=== PATIENT | male | born 1950 ===

== ENCOUNTER 2016-10-18 07:25 | Emergency (ER) | payer MEDICARE ==
[~2016-10-18] VITALS: Ht 177.8 cm; Wt 84.0 kg
[2016-10-18] MEDS ORDERED: NITROGLYCERIN SUBLINGUAL 0.4 MG (NITROQUICK) TABLET SL PRN (07:40)
[2016-10-18 08:07] LABS: MEAN CORPUSCULAR HEMOGLOBIN 31.3 PG (26.0-34.0); MEAN CORPUSCULAR VOLUME 87 FL (80-100); MEAN PLATELET VOLUME 9.9 FL (6.0-9.5); PLATELET COUNT 202 10^3uL (150-450); WHITE BLOOD COUNT 9.55 10^3uL (4.0-11.0)
[2016-10-18] MEDS: KETOROLAC 30 MG/ML (TORADOL) 1 ML VIAL IV ONE ×2 (08:19→08:23)
--- NOTE | 2016-10-18 08:23 | NUR ---
pt s iv that ems placed not in place, oral med given instead of iv, ems iv pulled
[2016-10-18] MEDS ORDERED: HYDROcodone/APAP 5 MG/325 MG (NORCO) TAB PO ONE (08:25)
[2016-10-18 08:35] LABS: BILIRUBIN,URINE Negative (Negative); CLARITY,URINE Clear; COLOR,URINE Yellow; GLUCOSE, URINE (UA) Negative (Negative); LEUKOCYTE ESTERASE ,URINE Negative (Negative); UROBILINOGEN,URINE 0.2 mg/dL (0.2-1.0)
[2016-10-18 08:37] LABS: ALBUMIN 3.4 g/dL (3.4-5.0); ALKALINE PHOSPHATASE 125 U/L (38-126); ANION GAP 14.8 MEQ/L (3-15); BUN/CREATININE RATIO 9 (10-20); CALCULATED IONIZED CALCIUM 4.3 mg/dL (3.8-4.6); CREATINE KINASE 39 U/L (55-170); TOTAL PROTEIN 6.4 g/dL (6.4-8.5)
[2016-10-18 08:38] LABS: MEAN CORPUSCULAR HGB CONC 35.9 g/dL (31.0-37.0)
[2016-10-18 08:42] LABS: INFLUENZA VIRUS TYPE A ANTIBOD Negative (NEGATIVE); INFLUENZA VIRUS TYPE B ANTIBOD Negative (NEGATIVE)
[2016-10-18 08:53] LABS: AMPHETAMINE SCREEN, URINE Negative (Negative); CANNABINOID SCREEN, URINE Negative (Negative); METHAMPHETAMINE SCREEN URINE S NEGATIVE (NEGATIVE); OPIATE SCREEN URINE Negative (Negative); PROPOXYPHENE STAT NEGATIVE (NEGATIVE)
[2016-10-18] MEDS ORDERED: NS IV 500 ML 500 ML IV SCH ×2 (09:25→10:10)
[2016-10-18 09:29] LABS: BAND NEUTROPHILS % 5 % (0-6); EOSINOPHILS % 2 % (0-4); LYMPHOCYTES # 0.9 #; MONOCYTES # 1.3 #; MONOCYTES % 14 % (3-11); RBC MORPH NORMAL (NORMAL); SEGMENTED NEUTROPHILS % 69 % (51-67); TOTAL CELLS COUNTED 100
--- NOTE | 2016-10-18 10:23 | NUR ---
to ct at approx 0950, back at approx 1015
[2016-10-18 11:24] VITALS: BP 164/77
--- NOTE | 2016-10-18 11:25 | NUR ---
Dr. Caballero consulting with Dr. Pierson, hospitalist at [facility].
[2016-10-18] MEDS ORDERED: HEPARIN DRIP 25000 UNIT/250 ML 250 ML IV ONE (11:50)
[2016-10-18] MEDS ORDERED: HEPARIN 1000 UNIT/ML 2 ML VIAL IV ONE (12:00)
== END 2016-10-18 12:59 | disposition home or self-care (01) ==
LOC: EDUNIT# 07:25 → ED 07:27
DX: I26.99 Other pulmonary embolism without acute cor pulmonale (principal); J20.9 Acute bronchitis, unspecified; Z87.891 Personal history of nicotine dependence; I10 Essential (primary) hypertension
CPT/HCPCS: 36415; 71010; 71275; 80053; 81003; 82550; 82553; 83605; 83880; 84443; 84484; 85025; 85379; 85610; 86140; 87040; 87502; 93005; 96361; 96374; 99285; A9270; G0478; J1644; J7040; Q9967; 80307; 93010

== ENCOUNTER → 2016-10-18 | Outpatient (CLI) | payer MEDICARE | LOC: EMS 07:10 | PROVIDERS: ATTEND Family Medicine | DX: I26.99 Other pulmonary embolism without acute cor pulmonale (principal); R06.09 Other forms of dyspnea ==

== ENCOUNTER → 2016-10-30 | Outpatient (REF) | payer MEDICARE ==
[~2016-10-30] MED LIST: AC325T PO; ACET1TAB PO; ALBU8.5H2 IH; ALPR.25T PO; AMIT25TA9 PO; AMOX1TAB12 PO; ASPI-586 PO; ATOR80TA PO; AZIT250T PO; AZIT250T81 PO; BENZ-13 PO; CLN.1T; CLON0.1T PO; DEXA1TAB PO; DEXA4TAB PO; DIPH50CA PO; DPH25C PO; FLUO10CA19 PO; FLX20C PO; FURO-125 PO; GBPN100C PO; HYDR-3702 PO; LEVE500T6 PO; LSNP10T PO; METO25TA60 PO; MULT-646 PO; OXYC5TAB71 PO; PHEN100C11 PO; PHEN100C4 PO; PHN100C PO; PTU50T PO; RANI150C4 PO; RIVA15TA2 PO; TERA10CA3 PO; TERA5CAP3 PO; ZOLP10TA PO; [UNRECOGNIZED DRUG - CODE] EP
[2016-10-30 12:52] LABS: MEAN CORPUSCULAR HEMOGLOBIN 30.6 PG (26.0-34.0); MEAN CORPUSCULAR HGB CONC 34.4 g/dL (31.0-37.0); MEAN CORPUSCULAR VOLUME 89 FL (80-100); MEAN PLATELET VOLUME 10.1 FL (6.0-9.5); PLATELET COUNT 381 10^3uL (150-450); WHITE BLOOD COUNT 10.81 10^3uL (4.0-11.0)
[2016-10-30 12:57] LABS: BAND NEUTROPHILS % 1 % (0-6); EOSINOPHILS % 2 % (0-4); LYMPHOCYTES # 1.3 #; MONOCYTES # 0.6 #; MONOCYTES % 6 % (3-11); RBC MORPH NORMAL (NORMAL); SEGMENTED NEUTROPHILS % 79 % (51-67); TOTAL CELLS COUNTED 100
[2016-10-30 13:03] LABS: ALBUMIN 3.5 g/dL (3.4-5.0); ANION GAP 14.1 MEQ/L (3-15); CALCULATED IONIZED CALCIUM 4.4 mg/dL (3.8-4.6); TOTAL PROTEIN 6.3 g/dL (6.4-8.5)
[2016-10-31 09:59] LABS: Factor V Leiden Mutation Negative (Negative)
[2016-11-01 14:17] LABS: LEVETIRACETAM LEVEL 18.3 mcg/mL
[2016-11-01 17:01] LABS: CARDIOLIPIN IGG ANTIBODY <9.4 GPL; CARDIOLIPIN IGM ANTIBODY <9.4 MPL
== END ==
LOC: LAB 11:03
PROVIDERS: ATTEND Family Medicine
DX: Z51.81 Encounter for therapeutic drug level monitoring (principal); I65.23 Occlusion and stenosis of bilateral carotid arteries; I25.10 Atherosclerotic heart disease of native coronary artery without angina pectoris; E07.89 Other specified disorders of thyroid; I26.99 Other pulmonary embolism without acute cor pulmonale; Z85.528 Personal history of other malignant neoplasm of kidney; N28.89 Other specified disorders of kidney and ureter
CPT/HCPCS: 80053; 80177; 80185; 81241; 84439; 84443; 84481; 85025; 86147

== ENCOUNTER 2016-11-10 09:45 | Outpatient (RCR) | payer MEDICARE ==
--- NOTE | 2016-11-06 13:38 | PT/OT/ST INITIAL EVALUATION ---
Department of Health and Human Services Form Approved Health Care Financing Administration OMB No. [id number] PLAN OF CARE/ASSESSMENT FOR OUTPATIENT REHABILITATION (Complete for Initial Claims Only) 1. PATIENT'S NAME Krish Ozuna 2. ACC # [id number] 3. [facility] [id number] 4. PROVIDER NO. [id number] 5. TYPE: PT 6. PRIOR HOSPITALIZATION None 7. PRIMARY DX Generalized weakness status post pulmonary emboli. 8. SECONDARY DX Na 9. ONSET DATE May 2016 10. REFERRAL DATE NA 11. SOC. DATE 11/03/2016 12. TIME OF EVAL 7:57 a.m. 12. REFERR[address]YSICIAN Dr. Lior Blanton 13. CHARGES/UNITS NA 14. G CODES [id number] 15. PRIOR LEVEL OF FUNCTION; PERTINENT HISTORY (Prior therapy results, reason for referral.) S: Prior to therapy, the patient did consent to today's evaluation and treatment. The patient is a 66-year-old male referred to physical therapy by Dr. Blanton to address generalized weakness status post pulmonary emboli. The patient does rate his overall and general health as poor. Primary Complaint: The patient states he began to experience weakness approximately 6 years ago when he was diagnosed with a meningioma, which was benign. This meningioma was removed; however, he did have 3 grand mal seizures prior to this. However, 3 years following this, three more meningiomas were then found. They have been monitoring these at this time. The patient does report that one is moving around and growing, which is causing left leg weakness, per patient report. The patient states in May 2016 he began to have seizures and since this time has noticed that he fatigues easily and was having difficulty getting around the house and the community. The patient has had balance issues due to this with a few falls; however, in October the patient got significantly ill where he was hospitalized and found that he had pulmonary emboli in his lungs. The patient states since getting out of the hospital his balance issues has significantly increased and he is falling at least 3 to 4 times per week. The falls are to the left side, frequently falling onto the left hip. The patient is able to ambulate with a front-wheeled walker. The patient does have a 4-wheeled walker at home, but this is not stable enough for him to use. Prior level of function: Includes the patient being able to walk, drive, mow his lawn and had no limitations. The patient ambulated with a single-point cane prior to onset of symptoms in May. Current level of function: Currently the patient is having 20 to 30 second spasming episodes in the left lower extremity. He needs to lie down to manage these and these are happening 1 to 2 times per day. The patient has additionally noticed that his left lower extremity is swelling at times and he feels that it is significantly weak. The patient is additionally having difficulty entering his house as there are 2 steps to enter and he requires assistance with these. Ambulating on his carpet is additionally significantly difficult frequently catching his left toe and causing falls. Therapy History: Includes 1 year ago where he had therapy on his shoulders. Obstacles to delivery of care do include progressive disorder with a growing meningioma. Pain rating: Maximal pain level is reported as 5/10. The patient describes the pain as left hip pain from falls. Aggravating factors: Include being up on his feet for longer periods of time. Relieving factors: Include first thing in the morning where he feels the best. Diagnostic testing: The patient reports no diagnostic tests at this time. Past medical history: Includes renal cancer, which he has had 1 kidney removed. Osteoarthritis, seizures, depression, hypertension, and scrotal swelling with this cyst. The patient additionally has a history of MRSA, but he does not actively have any wounds. Current medications: The patient will provide a list of medications at a future visit. Patient's Goal: The patient's goal for physical therapy is to be able to walk to get around the community and his home. 16. INITIAL ASSESSMENT/SAFETY PRECAUTIONS/MEDICAL COMPLICATIONS (Level of function at start of care. Be specific, use objective measures, list problems.) O: APPEARANCE AND OBSERVATION: The patient presents as an older male who arrives at physical therapy in a wheelchair. The patient is able to ambulate with contact guard assist, however, he has difficulty clearing his left toe and does fatigue easily. The patient requires verbal cueing in order to lift his legs. The patient is stand-by assist with all transfers. PALPATION: No palpation was performed. SPECIAL TESTS: No special tests were performed. OUTCOME ASSESSMENTS: Tinetti Balance and Gait Assessment which scored 8/28 putting the patient at a significant increased risk of falls. RANGE OF MOTION/FLEXIBILITY: Decreased flexibility but AROM on the right is to neutral. On the left, PROM is lacking 5 degrees from neutral. Hamstring flexibility is 142 degrees on the right and 139 degrees on the left. STRENGTH: Throughout the right lower extremity is grossly 4+/5 throughout and throughout the left lower extremity hip strength is grossly 2+/5, knee strength is grossly 2/5, dorsiflexion is 0/5 and plantar flexion is 1/5. TODAY'S TREATMENT: Following the initial evaluation therapeutic exercise was performed and issued a home exercise program. This patient was able to reproduce all exercises given to him. 17. 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 PROGNOSIS: This patient does have a fair prognosis with regular therapy attendance and compliance with home exercise program. This patient is expected to benefit from physical therapy services in order to have increased strength, increased active range of motion to return to home and short distance community mobility. This patient would be a good candidate for an AFO due to left foot drop. The doctor will be contacted regarding this specifically. GOALS: 1. The patient to be independent and compliant with home exercise program in 1 week. 2. The patient with passive range of motion left dorsiflexion to at least 0 degrees in 3 weeks to allow toe clearance for safe ambulation. 3. The patient with left lower extremity strength at the hip and knee at least 3+/5 throughout to allow independent transfers in 6 weeks. 4. The patient will a Tinetti score at least 19/28 in 8 weeks to reflect decreased fall risk for integration back to short community mobility. INFORMED CONSENT: The diagnosis, prognosis, treatment plan, risks and expected outcomes were discussed with the patient and the patient did agree to today's established plan of care. P: Plan to treat the patient 3 times per week for 8 weeks in order to address generalized weakness status post pulmonary emboli. Treatment to include possible manual therapy techniques, therapeutic exercise targeting active range of motion, strengthening, gait training, balance and proprioception training and patient education in home exercise program to be advanced as warranted. 18. FREQUENCY 3 times week 19. DURATION 8 weeks 20. FUNCTIONAL LEVEL (End of claim period) 21. PHYSICIAN SIGNATURE ? ON FILE OR ENTER HERE: 22. DATE: I certify the need for these services furnished under this plan of care and if for partial hospitalization. 23. CERTIFICATION FROM THROUGH [phone]
[~2016-11-10 09:45] MED LIST changes: -ALPR.25T PO; -AMIT25TA9 PO; -AZIT250T PO; -BENZ-13 PO; -DEXA4TAB PO; -DPH25C PO; -FURO-125 PO; -OXYC5TAB71 PO; -PHEN100C4 PO; -RIVA15TA2 PO
[2016-11-11] MEDS ORDERED: TERA10CA3 PO (08:41)
[2016-11-11] MEDS ORDERED: OXYC5TAB71 PO (08:41)
[2016-11-11] MEDS ORDERED: RIVA15TA2 PO (08:41)
[2016-11-17] MEDS ORDERED: DPH25C PO (20:15)
[2016-11-17] MEDS ORDERED: GBPN100C PO (20:15)
[2016-11-17] MEDS ORDERED: BENZ-13 PO (20:15)
[2016-11-17] MEDS ORDERED: ALPR.25T PO (20:15)
[2016-11-17] MEDS ORDERED: METO25TA60 PO (20:15)
[2016-11-17] MEDS ORDERED: RIVA15TA2 PO (20:15)
[2016-11-17] MEDS ORDERED: ZOLP10TA PO (20:15)
[2016-11-17] MEDS ORDERED: PHEN100C4 PO ×2 (20:15)
[2016-11-17] MEDS ORDERED: DEXA4TAB PO (20:15)
[2016-11-17] MEDS ORDERED: FLX20C PO (20:15)
[2016-11-17] MEDS ORDERED: AZIT250T PO (23:20)
== END 2016-12-29 13:20 | disposition home or self-care (01) ==
LOC: PT 09:45
PROVIDERS: ATTEND Family Medicine
DX: R53.1 Weakness (principal); Z92.89 Personal history of other medical treatment; I26.99 Other pulmonary embolism without acute cor pulmonale
CPT/HCPCS: 97110; 97163; G8978; G8979

== ENCOUNTER 2016-11-11 08:08 | Emergency (ER) | payer MEDICARE ==
[~2016-11-11] VITALS: Ht 177.8 cm; Wt 79.5 kg
[2016-11-11 08:44] LABS: BASOPHILS % (AUTO) 0 % (0-2); EOSINOPHILS # (AUTO) 0.1 10^3uL; EOSINOPHILS % (AUTO) 1 % (0-4); MEAN CORPUSCULAR HEMOGLOBIN 30.4 PG (26.0-34.0); MEAN CORPUSCULAR HGB CONC 34.1 g/dL (31.0-37.0); MEAN CORPUSCULAR VOLUME 89 FL (80-100); MEAN PLATELET VOLUME 10.6 FL (6.0-9.5); MONOCYTES # (AUTO) 0.5 X10^3; MONOCYTES % (AUTO) 8 % (3-11); NEUTROPHILS # (AUTO) 4.7 X10^3; NEUTROPHILS % (AUTO) 74 % (51-67); PLATELET COUNT 180 10^3uL (150-450); WHITE BLOOD COUNT 6.38 10^3uL (4.0-11.0)
[2016-11-11 08:58] LABS: ALBUMIN 3.7 g/dL (3.4-5.0); ALKALINE PHOSPHATASE 94 U/L (38-126); ANION GAP 14.5 MEQ/L (3-15); BUN/CREATININE RATIO 18 (10-20); CALCULATED IONIZED CALCIUM 4.3 mg/dL (3.8-4.6); TOTAL PROTEIN 6.3 g/dL (6.4-8.5)
[2016-11-11 09:24] LABS: BILIRUBIN,URINE Negative (Negative); CLARITY,URINE Clear; COLOR,URINE Yellow; GLUCOSE, URINE (UA) Negative (Negative); LEUKOCYTE ESTERASE ,URINE Negative (Negative); UROBILINOGEN,URINE 0.2 mg/dL (0.2-1.0)
[2016-11-11 13:00] VITALS: BP 163/74
== END 2016-11-11 10:15 | disposition home or self-care (01) ==
LOC: EDUNIT# 08:08 → ED 08:10
DX: R53.1 Weakness (principal); R47.81 Slurred speech; R07.89 Other chest pain; T42.0X5A Adverse effect of hydantoin derivatives, initial encounter; I10 Essential (primary) hypertension; G40.909 Epilepsy, unspecified, not intractable, without status epilepticus
CPT/HCPCS: 36415; 80053; 80185; 81003; 84484; 85025; 93005; 93010; 99284

== ENCOUNTER → 2016-11-17 | Outpatient (CLI) | payer MEDICARE | LOC: EMS 19:12 | PROVIDERS: ATTEND Emergency Medicine | DX: R06.02 Shortness of breath (principal); R56.9 Unspecified convulsions ==

== ENCOUNTER → 2016-11-17 | Emergency (ER) | payer MEDICARE ==
[~2016-11-17] VITALS: Ht 177.8 cm; Wt 79.5 kg
[~2016-11-17] MED LIST changes: -AC325T PO; -ACET1TAB PO; -ALBU8.5H2 IH; -AMOX1TAB12 PO; -ASPI-586 PO; -ATOR80TA PO; -AZIT250T81 PO; +AZITHROMYCIN 250 MG TAB (ZITHROMAX) PO ONE; -CLN.1T; -CLON0.1T PO; -DEXA1TAB PO; -DIPH50CA PO; -FLUO10CA19 PO; -FLX20C PO; -GBPN100C PO; -HYDR-3702 PO; -LEVE500T6 PO; -LSNP10T PO; -METO25TA60 PO; -MULT-646 PO; -PHEN100C11 PO; -PHN100C PO; -PTU50T PO; -RANI150C4 PO; -TERA10CA3 PO; -TERA5CAP3 PO; -ZOLP10TA PO; -[UNRECOGNIZED DRUG - CODE] EP; +cefTRIAXone SODIUM 1,000 MG in SODIUM CHLORIDE 50 ML IV ONE
--- NOTE | 2016-11-17 19:58 | NUR ---
DID HAVE LAB DRAWN TO DAY HERE AND DR RODRIGUEZ CALLED HIM AND TOLD HIM HIS DILANTIN LEVEL WAS 36
--- NOTE | 2016-11-17 19:59 | NUR ---
ALSO DR CARMICHAEL TOLD THEM TODAY THAT PT R COROTID ARTERY WAS 96% BLOCKED, IS SUPPOSE TO SEE CANCER TOMORROW
[2016-11-17 21:10] LABS: BASOPHILS % (AUTO) 1 % (0-2); EOSINOPHILS # (AUTO) 0.6 10^3uL; EOSINOPHILS % (AUTO) 9 % (0-4); LYMPHOCYTES # (AUTO) 1.8 X10^3; MEAN CORPUSCULAR HEMOGLOBIN 30.3 PG (26.0-34.0); MEAN CORPUSCULAR VOLUME 89 FL (80-100); MONOCYTES # (AUTO) 0.7 X10^3; MONOCYTES % (AUTO) 11 % (3-11); NEUTROPHILS # (AUTO) 3.1 X10^3; NEUTROPHILS % (AUTO) 50 % (51-67); PLATELET COUNT 157 10^3uL (150-450); WHITE BLOOD COUNT 6.19 10^3uL (4.0-11.0)
[2016-11-17 21:17] LABS: ALBUMIN 3.9 g/dL (3.4-5.0); ANION GAP 13.3 MEQ/L (3-15); CALCULATED IONIZED CALCIUM 4.3 mg/dL (3.8-4.6); TOTAL PROTEIN 6.7 g/dL (6.4-8.5)
[2016-11-17 21:42] LABS: BILIRUBIN,URINE Negative (Negative); CLARITY,URINE Clear; COLOR,URINE Yellow; GLUCOSE, URINE (UA) Negative (Negative); LEUKOCYTE ESTERASE ,URINE Negative (Negative); UROBILINOGEN,URINE 0.2 mg/dL (0.2-1.0)
[2016-11-18 00:06] VITALS: BP 123/64
== END | disposition home or self-care (01) ==
LOC: ED 19:31
DX: J18.9 Pneumonia, unspecified organism (principal); D32.0 Benign neoplasm of cerebral meninges; G81.94 Hemiplegia, unspecified affecting left nondominant side
CPT/HCPCS: 36415; 71010; 80053; 81003; 85025; 96365; 99283; A9270; J0696

== ENCOUNTER → 2016-11-17 | Outpatient (REF) | payer MEDICARE ==
[2016-11-17 12:36] LABS: ANION GAP 12.5 MEQ/L (3-15); CALCULATED IONIZED CALCIUM 4.3 mg/dL (3.8-4.6); TOTAL PROTEIN 6.7 g/dL (6.4-8.5)
[2016-11-17 12:41] LABS: MEAN CORPUSCULAR HEMOGLOBIN 29.7 PG (26.0-34.0); MEAN CORPUSCULAR HGB CONC 33.2 g/dL (31.0-37.0); WHITE BLOOD COUNT 7.77 10^3uL (4.0-11.0)
== END ==
LOC: LAB 11:40
PROVIDERS: ATTEND Family Medicine
DX: G40.109 Localization-related (focal) (partial) symptomatic epilepsy and epileptic syndromes with simple partial seizures, not intractable, without status epilepticus (principal); I12.9 Hypertensive chronic kidney disease with stage 1 through stage 4 chronic kidney disease, or unspecified chronic kidney disease; N18.2 Chronic kidney disease, stage 2 (mild); D32.0 Benign neoplasm of cerebral meninges; T42.0X1A Poisoning by hydantoin derivatives, accidental (unintentional), initial encounter
CPT/HCPCS: 80053; 80185; 85027

== ENCOUNTER → 2016-11-25 | Outpatient (CLI) | payer MEDICARE ==
[2016-11-25 09:09] LABS: ANION GAP 13.9 MEQ/L (3-15)
== END ==
LOC: LAB 08:14
PROVIDERS: ATTEND Family Medicine
DX: I26.99 Other pulmonary embolism without acute cor pulmonale (principal); Z85.528 Personal history of other malignant neoplasm of kidney; N28.89 Other specified disorders of kidney and ureter; E87.5 Hyperkalemia; T42.0X1A Poisoning by hydantoin derivatives, accidental (unintentional), initial encounter
CPT/HCPCS: 36415; 80048; 80185; 81240

== ENCOUNTER → 2016-12-02 | Outpatient (REF) | payer MEDICARE ==
[~2016-12-02] MED LIST changes: +AC325T PO; +ACET1TAB PO; +ALBU8.5H2 IH; +ALPR.25T PO; +AMOX1TAB12 PO; +ASPI-586 PO; +ATOR80TA PO; +AZIT250T PO; +AZIT250T81 PO; -AZITHROMYCIN 250 MG TAB (ZITHROMAX) PO ONE; +BENZ-13 PO; +CLN.1T; +CLON0.1T PO; +DEXA1TAB PO; +DEXA4TAB PO; +DIPH50CA PO; +DPH25C PO; +FLUO10CA19 PO; +FLX20C PO; +GBPN100C PO; +HYDR-3702 PO; +LEVE500T6 PO; +LSNP10T PO; +METO25TA60 PO; +MULT-646 PO; +OXYC5TAB71 PO; +PHEN100C11 PO; +PHEN100C4 PO; +PHN100C PO; +PTU50T PO; +RANI150C4 PO; +RIVA15TA2 PO; +TERA10CA3 PO; +TERA5CAP3 PO; +ZOLP10TA PO; +[UNRECOGNIZED DRUG - CODE] EP; -cefTRIAXone SODIUM 1,000 MG in SODIUM CHLORIDE 50 ML IV ONE
== END ==
LOC: LAB 11:48
PROVIDERS: ATTEND Family Medicine
DX: G40.804 Other epilepsy, intractable, without status epilepticus (principal)
CPT/HCPCS: 80185

== ENCOUNTER → 2016-12-08 | Outpatient (CLI) | payer MEDICARE ==
--- NOTE | 2016-12-08 09:22 | Diagnostic Imaging Report ---
PROCEDURE: US Carotid Duplex Bilateral. TECHNIQUE: Multiple real-time grayscale images were obtained over the carotid arteries in various projections bilaterally. Additional duplex Doppler and color Doppler images were also obtained. INDICATION: Right neck: Soft plaque is visible at the carotid bulb at the origin of the internal carotid artery. This does not have any obvious ulceration. The velocity data do not indicate hemodynamically significant stenosis of the internal or external carotid arteries. Estimated 30-40% diameter stenosis of the proximal right internal carotid artery is present. Antegrade flow is present in the right vertebral. Left neck: Intimal medial thickening with calcified and noncalcified plaque is present at the left carotid bulb. No hemodynamically significant stenosis of the internal or external carotid arteries is identified. Antegrade flow is present in the left vertebral. IMPRESSION: 1. Atheromatous changes at the bifurcations with moderate soft atheromatous plaque at the origin of the right internal carotid artery. No hemodynamically significant stenosis is identified. Dictated by: Dictated on workstation # [id number]
--- NOTE | 2016-12-08 18:39 | Diagnostic Imaging Report ---
INDICATION: Renal cell carcinoma. Following intravenous injection of 26.2 mCi of 99m technetium MDP, anterior and posterior whole body sonographic images are performed with additional high-resolution views of the lumbar spine and calvarium. COMPARISON: No prior bone scan. Calvarium: Two areas of curvilinear increased activity are present in the right parietal calvarium at the convexity at the region of the right craniotomy, calvarium is otherwise negative. Thorax: Small focus of increased uptake is visible along the lateral aspect of the right 10th rib. Small focal area of normal uptake is visible involving the mid aspect of the left 10th rib. Spine: Negative Pelvis: Negative Extremities: Degenerative uptake medial right knee. Renal uptake: Absent left kidney compatible with nephrectomy. IMPRESSION: 1. Abnormal uptake in bilateral 10th ribs, etiology indeterminate. 2. Right parietal calvarial uptake at the region of the previous craniotomy and known extra-axial mass. Dictated by: Dictated on workstation # [id number]
== END ==
LOC: RAD 07:57
PROVIDERS: ATTEND Family Medicine
DX: M53.3 Sacrococcygeal disorders, not elsewhere classified (principal); C64.2 Malignant neoplasm of left kidney, except renal pelvis; R42 Dizziness and giddiness; G40.804 Other epilepsy, intractable, without status epilepticus
CPT/HCPCS: 36415; 78306; 80185; 93880; A9503

== ENCOUNTER → 2016-12-19 | Outpatient (REF) | payer MEDICARE ==
[2016-12-19 11:23] LABS: ALBUMIN 3.9 g/dL (3.4-5.0); ANION GAP 14.4 MEQ/L (3-15); CALCULATED IONIZED CALCIUM 4.3 mg/dL (3.8-4.6); TOTAL PROTEIN 6.4 g/dL (6.4-8.5)
[2016-12-19 13:04] LABS: BASOPHILS % (AUTO) 0 % (0-2); EOSINOPHILS # (AUTO) 0.2 10^3uL; EOSINOPHILS % (AUTO) 3 % (0-4); LYMPHOCYTES # (AUTO) 1.3 X10^3; MEAN CORPUSCULAR HEMOGLOBIN 30.2 PG (26.0-34.0); MEAN CORPUSCULAR HGB CONC 34.4 g/dL (31.0-37.0); MEAN CORPUSCULAR VOLUME 88 FL (80-100); MEAN PLATELET VOLUME 11.6 FL (6.0-9.5); MONOCYTES # (AUTO) 0.9 X10^3; MONOCYTES % (AUTO) 11 % (3-11); NEUTROPHILS # (AUTO) 5.5 X10^3; NEUTROPHILS % (AUTO) 69 % (51-67); PLATELET COUNT 199 10^3uL (150-450); WHITE BLOOD COUNT 8.02 10^3uL (4.0-11.0)
== END ==
LOC: LAB 11:03
PROVIDERS: ATTEND Family Medicine
DX: G40.804 Other epilepsy, intractable, without status epilepticus (principal); N18.2 Chronic kidney disease, stage 2 (mild); I10 Essential (primary) hypertension; C64.2 Malignant neoplasm of left kidney, except renal pelvis; D32.0 Benign neoplasm of cerebral meninges
CPT/HCPCS: 80053; 80185; 85025

== ENCOUNTER 2017-01-10 19:30 | Emergency (ER) | payer MEDICARE ==
[~2017-01-10] VITALS: Ht 177.8 cm; Wt 84.1 kg
[~2017-01-10 19:30] MED LIST changes: -AMIT25TA9 PO; -FURO-125 PO
[2017-01-10] MEDS ORDERED: SODIUM CHLORIDE FLUSH 3 ML SYR IV PRN (19:50)
[2017-01-10] MEDS ORDERED: SODIUM CHLORIDE FLUSH 10 ML SYR IV PRN (19:50)
--- NOTE | 2017-01-10 20:00 | NUR ---
Pt brought into ER to by EMS. Pt presents with complaint of left leg swelling with itching and tingling. Pt reports that he normally has leg swelling at night but the left leg is more pronounced this evening. The itching and tingling is new tonight. Pt states since he is in a lying position now the tingling and itching has receded. Pt's left leg does have more swelling than right. Pitting edema to left leg 2+. Pt denies being in pain. Pt resting on bed, cooperative with interventions. Side rails up times two, cart in lowest position.
[2017-01-10] MEDS ORDERED: AMIT25TA9 PO (20:02)
[2017-01-10] MEDS ORDERED: ATOR80TA PO (20:02)
[2017-01-10 20:25] LABS: BASOPHILS % (AUTO) 1 % (0-2); EOSINOPHILS # (AUTO) 0.3 10^3uL; EOSINOPHILS % (AUTO) 3 % (0-4); LYMPHOCYTES # (AUTO) 1.9 X10^3; MEAN CORPUSCULAR HEMOGLOBIN 30.2 PG (26.0-34.0); MEAN CORPUSCULAR HGB CONC 34.5 g/dL (31.0-37.0); MEAN CORPUSCULAR VOLUME 88 FL (80-100); MEAN PLATELET VOLUME 10.8 FL (6.0-9.5); MONOCYTES % (AUTO) 11 % (3-11); NEUTROPHILS # (AUTO) 5.3 X10^3; NEUTROPHILS % (AUTO) 62 % (51-67); PLATELET COUNT 200 10^3uL (150-450); WHITE BLOOD COUNT 8.61 10^3uL (4.0-11.0)
[2017-01-10 20:32] LABS: ALBUMIN 3.7 g/dL (3.4-5.0); ALKALINE PHOSPHATASE 100 U/L (38-126); ANION GAP 12.8 MEQ/L (3-15); BUN/CREATININE RATIO 15 (10-20); CALCULATED IONIZED CALCIUM 4.4 mg/dL (3.8-4.6); CREATINE KINASE 32 U/L (55-170); TOTAL PROTEIN 6.2 g/dL (6.4-8.5)
--- NOTE | 2017-01-10 20:35 | NUR ---
Pt resting in room on cart with daughter present at bedside. Awaiting results from lab and xray report. Ultrasound personnel on their way in to do US. Call light in reach. No needs.
[2017-01-10 20:38] LABS: BILIRUBIN,URINE Negative (Negative); CLARITY,URINE Clear; COLOR,URINE Yellow; GLUCOSE, URINE (UA) Negative (Negative); LEUKOCYTE ESTERASE ,URINE Negative (Negative); UROBILINOGEN,URINE 0.2 mg/dL (0.2-1.0)
--- NOTE | 2017-01-10 20:45 | Diagnostic Imaging Report ---
INDICATION: Weakness. COMPARISON up-regulation 11/17/16. FINDINGS: The heart size is stable. There is minimal scarring in the right lung base. There is no pleural effusion or pneumothorax. The mediastinum is unremarkable. IMPRESSION: Stable appearance of the chest. Dictated by: Dictated on workstation # [id number]
[2017-01-10 21:04] LABS: AMPHETAMINE SCREEN, URINE Negative (Negative); CANNABINOID SCREEN, URINE Negative (Negative); METHAMPHETAMINE SCREEN URINE S NEGATIVE (NEGATIVE); OPIATE SCREEN URINE Negative (Negative); PROPOXYPHENE STAT NEGATIVE (NEGATIVE)
--- NOTE | 2017-01-10 21:30 | Diagnostic Imaging Report ---
INDICATION: Leg swelling. TECHNIQUE: Multiple real-time grayscale images were obtained over the left lower extremity in various projections. Duplex Doppler and color Doppler images were also obtained. FINDINGS: The left common femoral, femoral, and popliteal veins demonstrate normal response to compression, augmentation, and Valsalva. There is some soft tissue swelling in the popliteal fossa. David's cyst cannot be excluded. IMPRESSION: No evidence of deep venous thrombosis. Nonspecific soft tissue swelling in the popliteal fossa. Possibility of an underlying David's cyst cannot be excluded. Dictated by: Dictated on workstation # [id number]
[2017-01-10] MEDS ORDERED: FURO-125 PO (21:34)
--- NOTE | 2017-01-10 21:48 | NUR ---
Pt dismissed to home with instructions. Pt stated his understanding. IV site discontinued and wrapped in coban due to adhesive allergy. Pt instructed instructed to remove it when he leaves. Pt taken to POV via wheelchair. No other concerns or questions presented.
[2017-01-10 22:22] VITALS: BP 141/74
== END 2017-01-10 21:48 | disposition home or self-care (01) ==
LOC: ED 19:32
DX: R60.0 Localized edema (principal)
CPT/HCPCS: 36415; 71010; 80053; 80177; 80185; 80307; 81003; 82550; 82553; 83880; 84443; 84484; 85025; 85610; 85730; 93005; 93971; 99285; G0480; 80320; 99283

== ENCOUNTER → 2017-01-10 | Outpatient (CLI) | payer MEDICARE ==
[~2017-01-10] MED LIST changes: +AMIT25TA9 PO; +FURO-125 PO
== END ==
LOC: EMS 19:51
PROVIDERS: ATTEND Emergency Medicine
DX: M79.89 Other specified soft tissue disorders (principal); R20.2 Paresthesia of skin

== ENCOUNTER 2017-01-30 10:11 | Emergency (ER) | payer MEDICARE ==
[~2017-01-30] VITALS: Ht 177.8 cm; Wt 84.0 kg
--- NOTE | 2017-01-30 10:32 | NUR ---
Patient reports that he only has pain to chest when taking a deep breath and he only feels SOB when trying to take a deep breath. He stated, "I feel like I can't get enough air when I try to take a deep breath."
--- NOTE | 2017-01-30 10:52 | Diagnostic Imaging Report ---
INDICATION: Hemoptysis. EXAMINATION: PA and lateral views of the chest were obtained at 1039 hours. COMPARISON: 01/10/2017. FINDINGS: The heart and mediastinal silhouette are normal in appearance. There are old left-sided rib fractures. There is no acute consolidation, pneumothorax, or pleural fluid. IMPRESSION: Normal heart size with no focal consolidation. No pneumothorax or pleural fluid. Dictated by: Dictated on workstation # [id number]
[2017-01-30 11:40] LABS: BASOPHILS % (AUTO) 0 % (0-2); EOSINOPHILS # (AUTO) 0.2 10^3uL; EOSINOPHILS % (AUTO) 2 % (0-4); LYMPHOCYTES # (AUTO) 1.3 X10^3; MEAN CORPUSCULAR HEMOGLOBIN 30.4 PG (26.0-34.0); MEAN CORPUSCULAR HGB CONC 34.6 g/dL (31.0-37.0); MEAN CORPUSCULAR VOLUME 88 FL (80-100); MEAN PLATELET VOLUME 10.7 FL (6.0-9.5); MONOCYTES # (AUTO) 1.3 X10^3; MONOCYTES % (AUTO) 13 % (3-11); NEUTROPHILS # (AUTO) 6.7 X10^3; NEUTROPHILS % (AUTO) 70 % (51-67); PLATELET COUNT 119 10^3uL (150-450); WHITE BLOOD COUNT 9.63 10^3uL (4.0-11.0)
[2017-01-30 11:42] LABS: BILIRUBIN,URINE Negative (Negative); CLARITY,URINE Clear; COLOR,URINE Yellow; GLUCOSE, URINE (UA) Negative (Negative); LEUKOCYTE ESTERASE ,URINE Negative (Negative); PH,URINE 7.5 (5.0 - 8.0); UROBILINOGEN,URINE 0.2 mg/dL (0.2-1.0)
[2017-01-30] MEDS ORDERED: oxyCODONE/ACETAMINOPHEN 5MG-325 MG (PERCOCET) TABLET PO ONE (11:45)
[2017-01-30 11:53] LABS: ANION GAP 11.9 MEQ/L (3-15)
[2017-01-30 11:54] LABS: ALBUMIN 3.6 g/dL (3.4-5.0); CALCULATED IONIZED CALCIUM 4.4 mg/dL (3.8-4.6); TOTAL PROTEIN 6.5 g/dL (6.4-8.5)
[2017-01-30 12:06] LABS: RBC,URINE 0-2 /HPF; URINE CENTRIFUGED VOLUME 12 mL
[2017-01-30] MEDS ORDERED: AZIT250T81 PO (12:38)
[2017-01-30 23:19] VITALS: BP 137/71
== END 2017-01-30 13:35 | disposition home or self-care (01) ==
LOC: EDUNIT# 10:11 → ED 10:17
DX: J20.9 Acute bronchitis, unspecified (principal); R53.1 Weakness
CPT/HCPCS: 36415; 71020; 80053; 81003; 81015; 83605; 84443; 85025; 85610; 86140; 87040; 87070; 87150; 87205; 99284; A9270; 93010; 99285

== ENCOUNTER → 2017-01-30 | Outpatient (CLI) | payer MEDICARE ==
[~2017-01-30] MED LIST changes: +AMIT25TA9 PO; +FURO-125 PO
== END ==
LOC: EMS 09:45
PROVIDERS: ATTEND Family Medicine
DX: R06.02 Shortness of breath (principal); R04.2 Hemoptysis